=== PATIENT | male | born 1950 | race Caucasian/White ===

== ENCOUNTER 2024-04-29 12:19 | Observation (INO) | payer MEDICARE, SELFPAY ==
[~2024-04-29 12:19] MED LIST: Iopamidol 370 76% 100 ML VIAL ONE
[2024-04-29] MEDS ORDERED: Labetalol HCl 100 MG/20 ML VIAL ONE (13:20)
[2024-04-29 14:01] LABS: PTT 27.9 sec (22.0-33.0); Prothrombin Time 10.9 sec (9.5-12.1)
[2024-04-29 14:05] LABS: ALT (SGPT) 23 U/L (8-55); AST (SGOT) 27 U/L (5-34); Albumin 3.5 g/dL (3.4-4.8); Alkaline Phosphatase 78 U/L (40-110); Anion Gap 15 mmol/L (10-20); BUN (Urea Nitrogen) 20 mg/dL (8.4-25.7); Bilirubin, Total 0.3 mg/dL (0.2-1.2); Calc. Creatinine Clearance 0 mL/min (70-130); Calcium 9.6 mg/dL (7.8-10.44); Carbon Dioxide 19 mmol/L (23-31); Chloride 100 mmol/L (98-107); Estimated GFR 53; Globulin 3.4 g/dL (2.4-3.5); Glucose 301 mg/dL (83-110); Potassium 4.2 mmol/L (3.5-5.1); Protein, Total 6.9 g/dL (5.8-8.1); Sodium 130 mmol/L (136-145)
[2024-04-29 14:08] LABS: Troponin I Less than 0.010 ng/mL (< 0.028)
[2024-04-29 14:25] LABS: #Eosinophils 0.09 10x3/uL (0.0-0.5); #Monocytes 0.76 10x3/uL (0.0-1.1); #Neutrophils 8.21 10x3/uL (1.5-8.4); %Eosinophils 0.9 % (0.0-6.0); %Lymphocytes 9.5 % (18.0-47.0); %Monocytes 7.5 % (0.0-10.0); %Neutrophils 80.8 % (40.0-75.0); Hematocrit 40.7 % (38.8-50.0); Hemoglobin 13.3 g/dL (13.5-17.5); Mean Corpuscular HGB CONC 32.7 g/dL (32.0-36.0); Mean Corpuscular Hemoglobin 27.1 pg (27.0-33.0); Mean Corpuscular Volume 83.1 fL (81.2-95.1); Mean Platelet Volume 11.7 fL (7.4-10.4); Platelet Count 133 10x3/uL (150-450); RBC Distribution Width 17.2 % (11.5-14.5); White Blood Cell (WBC) Count 10.2 10x3/uL (3.5-10.5)
[2024-04-29] MEDS ORDERED: Acetaminophen 325 MG TAB PO PRN (16:04)
[2024-04-29] MEDS ORDERED: hydrALAZINE 20 MG/ML VIAL SLOW IVP PRN (16:06)
[2024-04-29] MEDS ORDERED: Aspirin 325 MG TAB ONE (17:02)
[2024-04-29 18:06] VITALS: BMI 23.1
[2024-04-29] MEDS: Atorvastatin Calcium 40 MG TAB PO SCH (21:56)
[2024-04-30 03:58] LABS: Cardiac Risk 5.9 (Less than 4.5)
[2024-04-30] MEDS ORDERED: Dextrose 50% Abboject 50 ML SYRINGE SLOW IVP PRN (07:59)
[2024-04-30] MEDS ORDERED: Glucagon 1 MG/ML KIT IM PRN (07:59)
[2024-04-30] MEDS ORDERED: Dextrose 5% in Water 1,000 ML IV PRN (07:59)
[2024-04-30] MEDS: Aspirin 81 mg Enteric Coated Tablet PO SCH (09:41)
[2024-04-30] MEDS: Enoxaparin 40 MG (0.4 mL) SYRINGE SC SCH (09:41)
[2024-04-30] MEDS: Insulin Lispro 100 UNIT/ML 10 ML VIAL SC PRN (12:50)
[2024-04-30 13:10] LABS: Hemoglobin A1c 8.5 % (4.0-6.0)
[2024-04-30 15:51] LABS: Amphetamine Not Detected (NotDetected); Barbiturates Screen Not Detected (NotDetected); Benzodiazepine Screen Not Detected (NotDetected); Cocaine Metabolite Screen Not Detected (NotDetected); Methadone Not Detected (NotDetected); Methamphetamine Not Detected (NotDetected); Opiate Screen Not Detected (NotDetected); Oxycodone Screen Not Detected (NotDetected); Phencyclidine (PCP) Not Detected (NotDetected); THC/Cannabinoid Screen Not Detected (NotDetected); Tricyclic Screen Not Detected (NotDetected)
[2024-04-30 21:50] VITALS: BP 174/82; TEMP 98.5
== END 2024-04-30 21:40 ==
LOC: CSHERS 12:19 → CSHTELE 16:05
PROVIDERS: ADMIT Internal Medicine; ATTEND Internal Medicine
DX: I63.9 Cerebral infarction, unspecified (principal); I10 Essential (primary) hypertension; E11.9 Type 2 diabetes mellitus without complications; G31.9 Degenerative disease of nervous system, unspecified; F17.210 Nicotine dependence, cigarettes, uncomplicated; Z79.82 Long term (current) use of aspirin; Z79.899 Other long term (current) drug therapy
CPT/HCPCS: 0042T; 70450; 70551; 71045; 80053; 80061; 80306; 82962 ×2; 83036; 84484; 85025; 85610; 85730; 86850; 86900; 86901; 93005; 93306; 94760; 96372; 96374; 97116; 97530; 99285; G0378 ×2; J1650; J1815; Q9967; 36415; 36416